=== PATIENT | female | born 1935 | race Caucasian/White ===

== ENCOUNTER → 2017-08-02 | Outpatient (CLI) | payer MEDICARE, BC ==
[~2017-08-02] MED LIST: AZOPT OPHTH1 %/10 M1 OPHTHALMIC; FENOFIBRATE145 M1 PO; FISH OIL 1,001000 M2 PO; JANUVIA 50 MG T50 M1 PO; LEVOTHYROXINE0.05 MG PO; LISINOPRIL20 MG PO; METFORMIN HCL500 MG PO; TRAMADOL 50 MG50 MG PO; ZIAC 10-6.25 M1 EACH PO
== END ==
LOC: M.ULTRA 12:28
DX: I73.9 Peripheral vascular disease, unspecified (principal); E11.9 Type 2 diabetes mellitus without complications; R25.2 Cramp and spasm

== ENCOUNTER → 2017-09-13 | Outpatient (CLI) | payer MEDICARE, BC ==
[2017-09-13 08:49] LABS: CREATININE 1.3 mg/dL (0.6-1.3)
== END ==
LOC: M.ULTRA 08:18 → M.CT 09:00 → M.ULTRA 09:30
PROVIDERS: Surgery Vascular Surgery
DX: I70.213 Atherosclerosis of native arteries of extremities with intermittent claudication, bilateral legs (principal); N28.1 Cyst of kidney, acquired; I51.7 Cardiomegaly; N26.1 Atrophy of kidney (terminal); I70.0 Atherosclerosis of aorta; I70.1 Atherosclerosis of renal artery; E11.9 Type 2 diabetes mellitus without complications; Z95.5 Presence of coronary angioplasty implant and graft